=== PATIENT | female | born 1980 | race Caucasian/White ===

== ENCOUNTER 2022-02-20 18:52 | Observation (INO) | payer OTHER, MEDICAID, SELFPAY ==
[2022-02-20] VITALS (10 sets, daily range): BP systolic 99–117; BP diastolic 51–76; PULSE 50–65; RESP 14–24; TEMP 36.8–37.3; O2SAT 98–100; BMI 19.1
--- NOTE | 2022-02-20 19:16 | DI.CT.S_ITS ---
PROCEDURE: CT ABDOMEN PELVIS W CON INDICATIONS: 11 TECHNIQUE: After the administration of intravenous contrast, axial sections acquired from the lung bases to the pubic symphysis. Coronal and sagittal reformats were performed. For radiation dose reduction, the following was used: automated exposure control, adjustment of mA and/or kV according to patient size. COMPARISON: None. FINDINGS: Image quality: Excellent. Lung bases: Lung bases are clear. Heart size is normal. Solid organs: Liver: The liver has no mass or intrahepatic biliary ductal dilatation. The portal vein and hepatic veins are patent. Biliary: The gallbladder has no gallstones, pericholecystic fluid, gallbladder wall thickening, or surrounding inflammatory change. Pancreas: The pancreas has no mass or ductal dilatation. There is no surrounding inflammation. Spleen: Normal size. There are no masses. Adrenals: No hypertrophy or nodules. Kidneys: No obstructive calculus or hydronephrosis. No solid mass. No cystic mass. Peritoneum and bowel: The distal esophagus and stomach are normal. There are multiple fluid-filled segments of small bowel but no evidence of small-bowel obstruction. A segment of large bowel in the central abdomen is significantly dilated measuring 12 x 9 cm and 17 cm in length. This dilated loop of bowel is likely sigmoid colon given that the left colon is not visualized in the left colic gutter. Lack of enteric contrast limits evaluation. A sigmoid volvulus is suspected. The right colon is also dilated. Nodes and vessels: No retroperitoneal or mesenteric adenopathy by size criteria. Aorta and inferior vena cava are normal in size. Miscellaneous: No abdominal wall mass or hernia. PELVIS: Genitourinary: The bladder has no wall thickening or mass. a left cyst measures 3 cm. Smaller adjacent cysts measuring approximately 1.5 cm peripheral enhancement are likely active ovarian follicles.. The uterus is grossly normal. Bones: No suspicious bony lesions. No vertebral body compression fractures. IMPRESSION: Severely distended sigmoid colon which is displaced to the right, likely due to sigmoid volvulus. Findings were discussed with Dr. Barlow at 20:15. Dictated by: Aric Figueroa M.D. on 02/20/2022 at 20:05 Approved by: Aric Figueroa M.D. on 02/20/2022 at 20:20
--- NOTE | 2022-02-20 19:16 | ED.GENADULT ---
HPI - General Adult General Chief complaint: Abdominal Pain Stated complaint: Abdominal Pain today Time Seen by Provider: 02/20/22 19:11 Source: patient Mode of arrival: Wheelchair Limitations: no limitations History of Present Illness HPI narrative: Patient is a 42-year-old female who is here for evaluation of abdominal pain. States that it started shortly after she woke up this morning and has progressively worsened throughout the day. She states she has had a constant pain but there are times when it is much worse than others. Has had some nausea but no vomiting. The drive into the emergency department was especially painful for her. She has not had a bowel movement today. States she is not passing any flatus. She has not had any prior abdominal surgeries. Denies any urinary symptoms. No vaginal bleeding. No fevers. Related Data Allergies Allergy/AdvReac Type Severity Reaction Status Date / Time Sulfa (Sulfonamide Allergy Verified 02/20/22 19:09 Antibiotics) Review of Systems Constitutional Constitutional: Denies fever(s) Cardiovascular Cardiovascular: Reports system reviewed and no additional complaints, except as documented Respiratory Respiratory: Reports system reviewed and no additional complaints, except as documented Gastrointestinal Gastrointestinal: Reports as per HPI and Reports system reviewed and no additional complaints, except as documented Genitourinary Genitourinary: Reports system reviewed and no additional complaints, except as documented and Reports as per HPI Integumentary/Breasts Skin/Breast: Reports system reviewed and no additional complaints, except as documented Hematologic/Lymphatic On Anticoagulants: No Patient History Medical History Healthy adult Social History Smoking Status: Never smoker Smoking Status: Never smoker Substance Use Type: marijuana Exam Initial Vital Signs Initial Vital Signs: Vital Signs Temperature 98.3 F 02/20/22 19:05 Pulse Rate 58 L 02/20/22 19:05 Respiratory Rate 24 02/20/22 19:05 Blood Pressure 109/53 L 02/20/22 19:05 Pulse Oximetry 100 02/20/22 19:05 Const General: cooperative, well developed and well groomed HENMT Head: normal to inspection and normocephalic Resp Effort & Inspection: normal respiratory effort Auscultation: clear to auscultation bilaterally Cardio Rate: regular rate Rhythm: regular rhythm GI Inspection: non-distended Palpation: guarding and mass (Periumbilical right lower quadrant) Skin General: no rashes or lesions noted Neuro General: patient alert, patient awake and moves all extremities Cognition: normal cognition Speech: speech normal Extrem General: normal to inspection and capillary refill normal Psych Appearance: grossly normal and well kempt Course Orders Ordered: ED Orders 02/20/22 19:04 Complete Blood Count AUTO DIFF Stat Comprehensive Metabolic Panel Stat Lipase Stat Test Serum,Qual Stat 02/20/22 19:16 CT abdomen pelvis w con Stat 02/20/22 19:33 Urine Culture Stat Urine Microscopic Stat 02/20/22 20:29 Consult to General Surgery Stat 02/20/22 21:00 COVID19 -Nasal RAPID/Pre-Proc Stat Discontinued Medications Sodium Chloride (Normal Saline 0.9%) 1,000 mls @ 1,000 mls/hr IV BOLUS ONE Stop: 02/20/22 20:11 Last Admin: 02/20/22 19:24 Dose: 1,000 mls/hr Documented by: ATAYLOR Vital Signs Vital signs: Vital Signs - 8 hr 02/20/22 19:05 02/20/22 20:30 Temperature 98.3 F Pulse Rate 58 L 55 L Respiratory Rate 24 16 Blood Pressure 109/53 L 110/59 L Pulse Oximetry 100 99 Medical Decision Making Lab Data Lab results reviewed: Yes I reviewed the patient's lab results. Result diagrams: 02/20/22 19:04 02/20/22 19:04 Labs: Lab Results 02/20/22 02/20/22 02/20/22 Range/Units 19:04 19:04 19:04 WBC 8.4 (4.5-11.0) X10^3/uL RBC 4.68 (4.0-5.2) X10^6/uL Hgb 13.4 (12.0-16.0) g/dL Hct 39.6 (36-46) % MCV 84.6 (80-100) fL MCH 28.6 (26-34) PG MCHC 33.8 (30-36) % RDW 14.3 (11.6-14.8) % Plt Count 236 (150-400) X10^3/uL Neut % (Auto) 73.3 (50-75) % Lymph % (Auto) 19.0 L (25-40) % [place] % (Auto) 6.7 (3-14) % Eos % (Auto) 0.4 L (2-4) % Baso % (Auto) 0.6 (0-2) % Neut # (Auto) 6200 (5922-5131) /uL Lymph # (Auto) 1600 (4081-8231) /uL [place] # (Auto) 600 (0-900) /uL Eos # (Auto) 0 (0-450) /uL Baso # (Auto) 0 (0-100) /uL Sodium 137 (137-145) mmol/L Potassium 3.7 (3.4-5.1) mmol/L Chloride 103 (98-107) mmol/L Carbon Dioxide 22 (22-32) mmol/L BUN 7 (7-17) mg/dL Creatinine 0.67 (0.52-1.04) mg/dL Estimated GFR > 60 (>60) mL/min BUN/Creatinine Ratio 10.4 (6-22) Glucose 122 H (70-100) mg/dL Calcium 9.3 (8.4-10.2) mg/dL Total Bilirubin 0.9 (0.2-1.3) mg/dL AST 31 (14-36) IU/L ALT 21 (<35) IU/L Alkaline Phosphatase 33 L (38-126) U/L Total Protein 8.0 (6.3-8.2) g/dL Albumin 4.7 (3.5-5.0) g/dL Globulin 3.3 (1.7-4.1) g/dL Albumin/Globulin Ratio 1.4 (1.0-2.8) Lipase 56 (23-300) U/L Serum , Qual Negative (Negative) Urine RBC (0-5/HPF) Urine WBC (0-5/HPF) Ur Squamous Epith Cells (0-5/HPF) Ur Transition Epith Cell (0-5/HPF) Urine Bacteria (None) Urine Mucus (Negative) Ur Culture Indicated? SARS-CoV-2 (PCR) (Negative) 02/20/22 02/20/22 Range/Units 19:33 21:00 WBC (4.5-11.0) X10^3/uL RBC (4.0-5.2) X10^6/uL Hgb (12.0-16.0) g/dL Hct (36-46) % MCV (80-100) fL MCH (26-34) PG MCHC (30-36) % RDW (11.6-14.8) % Plt Count (150-400) X10^3/uL Neut % (Auto) (50-75) % Lymph % (Auto) (25-40) % [place] % (Auto) (3-14) % Eos % (Auto) (2-4) % Baso % (Auto) (0-2) % Neut # (Auto) (5250-1875) /uL Lymph # (Auto) (7096-1437) /uL [place] # (Auto) (0-900) /uL Eos # (Auto) (0-450) /uL Baso # (Auto) (0-100) /uL Sodium (137-145) mmol/L Potassium (3.4-5.1) mmol/L Chloride (98-107) mmol/L Carbon Dioxide (22-32) mmol/L BUN (7-17) mg/dL Creatinine (0.52-1.04) mg/dL Estimated GFR (>60) mL/min BUN/Creatinine Ratio (6-22) Glucose (70-100) mg/dL Calcium (8.4-10.2) mg/dL Total Bilirubin (0.2-1.3) mg/dL AST (14-36) IU/L ALT (<35) IU/L Alkaline Phosphatase (38-126) U/L Total Protein (6.3-8.2) g/dL Albumin (3.5-5.0) g/dL Globulin (1.7-4.1) g/dL Albumin/Globulin Ratio (1.0-2.8) Lipase (23-300) U/L Serum , Qual (Negative) Urine RBC 0-1/hpf (0-5/HPF) Urine WBC 10-30/hpf H (0-5/HPF) Ur Squamous Epith Cells 1-5 /hpf (0-5/HPF) Ur Transition Epith Cell 1-5/hpf (0-5/HPF) Urine Bacteria Few (2-10) H (None) Urine Mucus 1+ H (Negative) Ur Culture Indicated? Specimen cultured SARS-CoV-2 (PCR) Negative (Negative) Urine Dip Bedside Urine Glucose Negative Bedside Urine Bilirubin - Negative Bedside Urine Ketone +/- 5 Urine Specific [place] 1.020 Bedside Urine Occult Blood - Negative Bedside Urine pH 6.0 Bedside Urine Protein - Negative Bedside Urine Urobilinogen - Negative Bedside Urine Nitrite - Negative Bedside Urine Leukocytes + 70 Esterase Point of care testing: Urine Dip Bedside Urine Glucose Negative Bedside Urine Bilirubin - Negative Bedside Urine Ketone +/- 5 Urine Specific [place] 1.020 Bedside Urine Occult Blood - Negative Bedside Urine pH 6.0 Bedside Urine Protein - Negative Bedside Urine Urobilinogen - Negative Bedside Urine Nitrite - Negative Bedside Urine Leukocytes + [address] scan - abdomen/pelvis: Radiologist's Impression: [address] [address] [address] Scan Report Signed Patient: Misa López MR#: [id number] : 1980 Acct:[id number] Age/Sex: 42 / F Date of Service: 02/20/22 Loc: ED Accession Number: [id number] ?? Procedure: CT abdomen pelvis w con Ordering Provider: Jose Barlow D.O. PROCEDURE:? CT ABDOMEN PELVIS W CON ? INDICATIONS:? 11 ? TECHNIQUE:? After the administration of intravenous contrast, axial sections acquired from the lung bases to the pubic symphysis.? Coronal and sagittal reformats were performed.? For radiation dose reduction, the following was used:? automated exposure control, adjustment of mA and/or kV according to patient size.? ? COMPARISON:? None. ? FINDINGS: Image quality:? Excellent.? ? Lung bases:? Lung bases are clear.? Heart size is normal. ? Solid organs:? Liver: The liver has no mass or intrahepatic biliary ductal dilatation. The portal vein and hepatic veins are patent. Biliary: The gallbladder has no gallstones, pericholecystic fluid, gallbladder wall thickening, or surrounding inflammatory change. Pancreas: The pancreas has no mass or ductal dilatation. There is no surrounding inflammation. Spleen: Normal size. There are no masses. Adrenals: No hypertrophy or nodules. Kidneys: No obstructive calculus or hydronephrosis.? No solid mass. No cystic mass. ? Peritoneum and bowel:? The distal esophagus and stomach are normal.? There are multiple fluid-filled segments of small bowel but no evidence of small-bowel obstruction.? A segment of large bowel in the central abdomen is significantly dilated measuring 12 x 9 cm and 17 cm in length.? This dilated loop of bowel is likely sigmoid colon given that the left colon is not visualized in the left colic gutter.? Lack of enteric contrast limits evaluation.? A sigmoid volvulus is suspected.? The right colon is also dilated. ? ? Nodes and vessels:? No retroperitoneal or mesenteric adenopathy by size criteria.? Aorta and inferior vena cava are normal in size.? ? Miscellaneous:? No abdominal wall mass or hernia. ? PELVIS:? Genitourinary:? The bladder has no wall thickening or mass. a left cyst measures 3 cm.? Smaller adjacent cysts measuring approximately 1.5 cm peripheral enhancement are likely active ovarian follicles..? The uterus is grossly normal.? Bones:? No suspicious bony lesions.? No vertebral body compression fractures.? ? IMPRESSION:? Severely distended sigmoid colon which is displaced to the right, likely due to sigmoid volvulus.? Findings were discussed with Dr. Barlow at 20:15. ? ? Dictated by: Aric Figueroa M.D. on 02/20/2022 at 20:05 ? ? Approved by: Aric Figueroa M.D. on 02/20/2022 at 20:20?? [facility] Narrative Medical decision making narrative: Lower abdominal discomfort specifically periumbilical and right lower quadrant. There is a small mass in this area the does seem to be exquisitely tender to the patient. Labs are unremarkable. Vital signs unremarkable. Patient declined offer for nausea and pain medication as she states when she is lying flat and still she is not in much discomfort. CT scan concerning for sigmoid volvulus. Discussed the case with Dr. Mcneal on-call for General surgery who will see the patient emergency department and admit for further evaluation treatment. Discharge Plan Departure Patient Disposition: Admitted As Inpatient Clinical Impression: Sigmoid volvulus Admit Date/Time: 02/20/22 21:19 Admit Provider: Ole Mcneal
[2022-02-20 19:20] LABS: Add Manual Diff / Slide Review NO; Basophils Absolute Auto 0 /uL (0-100); Basophils Percent Auto 0.6 % (0-2); Eosinophils Absolute Auto 0 /uL (0-450); Eosinophils Percent Auto 0.4 % (2-4); Hematocrit 39.6 % (36-46); Hemoglobin 13.4 g/dL (12.0-16.0); Lymphocytes Absolute Auto 1600 /uL (1100-4500); Mean Corpuscular HGB Conc 33.8 % (30-36); Mean Corpuscular Hemoglobin 28.6 PG (26-34); Mean Corpuscular Volume 84.6 fL (80-100); Monocytes Absolute Auto 600 /uL (0-900); Monocytes Percent Auto 6.7 % (3-14); Neutrophils Absolute Auto 6200 /uL (1500-7000); Neutrophils Percent Auto 73.3 % (50-75); Platelet Count 236 X10^3/uL (150-400); Red Blood Cell Count 4.68 X10^6/uL (4.0-5.2); Red Cell Distribution Width 14.3 % (11.6-14.8); White Blood Cell Count 8.4 X10^3/uL (4.5-11.0)
[2022-02-20] MEDS: SODIUM CHLORIDE 0.9% 1,000 ML 1000 ML IV (19:24)
[2022-02-20 19:30] LABS: Alanine Aminotransferase 21 IU/L (<35); Albumin 4.7 g/dL (3.5-5.0); Albumin Globulin Ratio 1.4 (1.0-2.8); Alkaline Phosphatase 33 U/L (38-126); Aspartate Aminotransferase 31 IU/L (14-36); BUN Creatinine Ratio 10.4 (6-22); Bilirubin Total 0.9 mg/dL (0.2-1.3); Blood Urea Nitrogen 7 mg/dL (7-17); Calcium 9.3 mg/dL (8.4-10.2); Carbon Dioxide 22 mmol/L (22-32); Chloride 103 mmol/L (98-107); Estimated Glomerular Filt Rate > 60 mL/min (>60); Globulin 3.3 g/dL (1.7-4.1); Glucose 122 mg/dL (70-100); HEMOLYSIS 24 (0-50); Lipase 56 U/L (23-300); Potassium 3.7 mmol/L (3.4-5.1); Sodium 137 mmol/L (137-145)
[2022-02-20 19:41] LABS: Pregnancy Test Serum,Qual Negative (Negative)
[2022-02-20 19:47] LABS: Bacteria Urine Few (2-10); Culture Indicated Urine Specimen Cultured; Mucus Urine 1+ (Negative); RBC Urine 0-1/HPF (0-5/HPF); Squamous Epithelial Cell Urine 1-5 /HPF (0-5/HPF); Transitional Epi Cells Urine 1-5/HPF (0-5/HPF); WBC Urine 10-30/HPF (0-5/HPF)
[2022-02-20 21:19] LABS: COVID19 -Nasal RAPID Negative (Negative)
--- NOTE | 2022-02-20 21:40 | PM.HP.1 ---
History of Present Illness History of Present Illness Date Patient Seen: 02/20/22 Time Patient Seen: 21:41 Chief complaint: Abdominal Pain today Narrative: 42-year-old woman presents with sudden onset of lower abdominal pain that started this morning. Initially she thought she had a distended bladder but the pain persisted after voiding. She noticed difficulty walking especially moving the right leg. No vomiting but she has been belching. She has not passed gas or had a bowel movement. She presented to the emergency room where a CT scan was suggestive of sigmoid volvulus. She denies prior medical problems or surgeries. Never had a colonoscopy. She reports she has always had some difficulty with her bowels and difficulty with certain vegetables causing gas and crampy pain. Patient History Medical History Healthy adult Family & Social History Safety & Behavioral: Feels Safe in Current Yes Environment Tobacco & Substance use: Smoking Status Never smoker Substance Use Type marijuana Meds Home Medications and Allergies Allergies Allergy/AdvReac Type Severity Reaction Status Date / Time Sulfa (Sulfonamide Allergy Verified 02/20/22 19:09 Antibiotics) Exam Vital Signs (past 8 hours): - 02/20/22 19:05 02/20/22 20:30 Temperature 98.3 F Pulse Rate 58 L 55 L Respiratory Rate 24 16 Blood Pressure 109/53 L 110/59 L Pulse Oximetry 100 99 Oxygen Delivery Method Room Air Const General: healthy appearing Resp Effort & Inspection: normal respiratory effort GI Other: No peritoneal findings There is a distended tender mass in the right lower quadrant Objective Labs Result Diagrams: 02/20/22 19:04 02/20/22 19:04 Labs: Laboratory Results - last 24 hr 02/20/22 02/20/22 02/20/22 19:04 19:04 19:04 WBC 8.4 RBC 4.68 Hgb 13.4 Hct 39.6 MCV 84.6 MCH 28.6 MCHC 33.8 RDW 14.3 Plt Count 236 Neut % (Auto) 73.3 Lymph % (Auto) 19.0 L [place] % (Auto) 6.7 Eos % (Auto) 0.4 L Baso % (Auto) 0.6 Neut # (Auto) 6200 Lymph # (Auto) 1600 [place] # (Auto) 600 Eos # (Auto) 0 Baso # (Auto) 0 Sodium 137 Potassium 3.7 Chloride 103 Carbon Dioxide 22 BUN 7 Creatinine 0.67 Estimated GFR > 60 BUN/Creatinine Ratio 10.4 Glucose 122 H Calcium 9.3 Total Bilirubin 0.9 AST 31 ALT 21 Alkaline Phosphatase 33 L Total Protein 8.0 Albumin 4.7 Globulin 3.3 Albumin/Globulin Ratio 1.4 Lipase 56 Serum , Qual Negative Urine RBC Urine WBC Ur Squamous Epith Cells Ur Transition Epith Cell Urine Bacteria Urine Mucus Ur Culture Indicated? SARS-CoV-2 (PCR) 02/20/22 02/20/22 19:33 21:00 WBC RBC Hgb Hct MCV MCH MCHC RDW Plt Count Neut % (Auto) Lymph % (Auto) [place] % (Auto) Eos % (Auto) Baso % (Auto) Neut # (Auto) Lymph # (Auto) [place] # (Auto) Eos # (Auto) Baso # (Auto) Sodium Potassium Chloride Carbon Dioxide BUN Creatinine Estimated GFR BUN/Creatinine Ratio Glucose Calcium Total Bilirubin AST ALT Alkaline Phosphatase Total Protein Albumin Globulin Albumin/Globulin Ratio Lipase Serum , Qual Urine RBC 0-1/hpf Urine WBC 10-30/hpf H Ur Squamous Epith Cells 1-5 /hpf Ur Transition Epith Cell 1-5/hpf Urine Bacteria Few (2-10) H Urine Mucus 1+ H Ur Culture Indicated? Specimen cultured SARS-CoV-2 (PCR) Negative Assessment & Plan Assessment and plan (1) Sigmoid volvulus: Status: Acute Plan 42-year-old woman with sigmoid volvulus. Discussed the risks and benefits of colonoscopy or rigid proctoscopy to de torse the colon. I explained that the normal plan would be to leave a rectal tube or some type of tube in the sigmoid colon to prevent it from volvulizing again and proceed with surgery after a bowel prep. Explained that this is due to the fact that volvulus tends to recur. She understands this and she consents to the endoscopy to detorse the volvulus. She would prefer to think about the surgery bit more after we untwist her colon. We will proceed with endoscopy tonight. Time Spent With Patient Critical Care time: I spent a total of [] minutes of critical care time on this patient's care today; this time is exclusive of procedural time.
[2022-02-20] MEDS: LACTATED RINGERS 1,000 ML 42 ML IV (21:48)
--- NOTE | 2022-02-20 22:02 | SUR.HOLD ---
Pt and brought to preop, both Dr. Bautista and Dr. Mcneal spoke with pt, pt then brought to OR after consents signed.
--- NOTE | 2022-02-20 22:30 | DI.RAD.S_ITS ---
PROCEDURE: XR KUB INDICATIONS: s/p detorsion of sigmiod with rectal tube TECHNIQUE: One view of the abdomen acquired. COMPARISON: None. FINDINGS: Surgical changes and devices: There is a rectal tube in place. Bowel: There is gaseous distension throughout colon and small bowel loops without a distinct pattern. No focal dilated bowel loop as seen by CT previously. Soft tissues: No suspicious abdominal calcifications. Visualized solid organ contours appear normal in size. There is excretion of previously administered IV contrast in the renal and ureteral collecting systems. Bones: No suspicious bony lesions. IMPRESSION: 1. There is air throughout small and large bowel without a focal loop dilatation is seen previously by CT. This may indicate detorsion of previous volvulus. Dictated by: Yuki Ortega M.D. on 02/20/2022 at 23:21 Approved by: Yuki Ortega M.D. on 02/20/2022 at 23:28
--- NOTE | 2022-02-20 22:31 | DI.RAD.S_ITS ---
PROCEDURE: XR CHEST 1V INDICATIONS: s/p sigmoid detorsion TECHNIQUE: One view of the chest was acquired. COMPARISON: None. FINDINGS: Surgical changes and devices: None. Lungs and pleura: Lungs are clear. No pleural effusions or pneumothorax. Mediastinum: Mediastinal contours appear normal. Heart size is normal. Bones and chest wall: No suspicious bony lesions. Overlying soft tissues appear unremarkable. IMPRESSION: 1. No free intraperitoneal air. 2. No acute cardiopulmonary disease. Dictated by: Yuki Ortega M.D. on 02/20/2022 at 23:28 Approved by: Yuki Ortega M.D. on 02/20/2022 at 23:28
--- NOTE | 2022-02-20 22:49 | SUR.PHASEI ---
Pt arrived to PACU, airway patent, pt drowsy, awoke, denied pain. Both Dr. Bautista and Dr. Mcnael spoke with pt. Pt passing gas.Report called to Barry. Pt brought up to room.
--- NOTE | 2022-02-20 22:56 | PM.OP.1 ---
Operative Date/Time/Diagnoses Date of procedure: 02/20/22 Time of procedure: 22:56 Pre-op diagnosis: Sigmoid volvulus Post-op diagnosis: same Procedure & Clinicians Procedure: Flexible Sigmoidoscopy Same procedure as scheduled: Yes Indications: Sigmoid volvulus Surgeon: Ole Mcneal Anesthesia Type: MAC +/- Operative Notes Procedure in detail: Patient was brought to the operating room on the [facility] and a time-out was performed. Monitored anesthesia was induced by Dr. Bautista with propofol and fentanyl. A digital rectal exam was performed with lubricant. The colonoscope was inserted and advanced to the distal sigmoid colon where the colon appeared to be twisted and collapsed. The colonoscope was gently advanced through and passed to the descending colon. The scope was advanced to approximately the splenic flexure where solid stool eventually obscured the entire colon lumen. The colonoscope was then withdrawn into the rectum and a large 30 [place] red rubber catheter was advanced alongside the colonoscope up into the sigmoid colon. The scope was withdrawn leaving red rubber catheter in place. The catheter was taped to the inner thigh. There were no other obvious lesions in the visualized segments of the colon. Post-operative Condition: stable Disposition: PACU
--- NOTE | 2022-02-20 23:18 | SUR.PHASEI ---
Pt brought up to room 204 with belongings and left in stable condition.
[2022-02-20] MEDS: HYDROMORPHONE 0.5 MG INJ IV (23:21)
[2022-02-20] MEDS: DEXTROSE 5%-LACTATED RINGERS 1,000 ML 100 ML IV (23:21)
[2022-02-21 00:29] VITALS: BP 104/56; PULSE 52; RESP 16; TEMP 36.6; O2SAT 100
[2022-02-21 01:26] VITALS: BP 112/60; PULSE 52; RESP 18; TEMP 36.7; O2SAT 99
[2022-02-21 04:28] VITALS: BP 106/58; PULSE 52; RESP 14; TEMP 36.7; O2SAT 96
[2022-02-21 04:56] LABS: Add Manual Diff / Slide Review NO; Basophils Absolute Auto 0 /uL (0-100); Basophils Percent Auto 0.6 % (0-2); Eosinophils Absolute Auto 100 /uL (0-450); Eosinophils Percent Auto 0.9 % (2-4); Hematocrit 35.1 % (36-46); Hemoglobin 11.9 g/dL (12.0-16.0); Lymphocytes Absolute Auto 1500 /uL (1100-4500); Lymphocytes Percent Auto 20.5 % (25-40); Mean Corpuscular HGB Conc 33.8 % (30-36); Mean Corpuscular Hemoglobin 28.6 PG (26-34); Mean Corpuscular Volume 84.6 fL (80-100); Monocytes Absolute Auto 700 /uL (0-900); Monocytes Percent Auto 10.3 % (3-14); Neutrophils Absolute Auto 4800 /uL (1500-7000); Neutrophils Percent Auto 67.7 % (50-75); Platelet Count 209 X10^3/uL (150-400); Red Blood Cell Count 4.15 X10^6/uL (4.0-5.2); Red Cell Distribution Width 14.1 % (11.6-14.8); White Blood Cell Count 7.1 X10^3/uL (4.5-11.0)
[2022-02-21 05:16] LABS: BUN Creatinine Ratio 6.7 (6-22); Blood Urea Nitrogen 4 mg/dL (7-17); Calcium 8.3 mg/dL (8.4-10.2); Carbon Dioxide 23 mmol/L (22-32); Chloride 105 mmol/L (98-107); Estimated Glomerular Filt Rate > 60 mL/min (>60); Glucose 124 mg/dL (70-100); HEMOLYSIS < 15 (0-50); Magnesium 1.8 mg/dL (1.6-2.3); Potassium 3.4 mmol/L (3.4-5.1); Sodium 134 mmol/L (137-145)
--- NOTE | 2022-02-21 08:26 | DI.CT.S_ITS ---
PROCEDURE: CT ABDOMEN PELVIS WO CON INDICATIONS: rule out cecal volvulus TECHNIQUE: Rectal contrast was given. Axial sections were acquired from the lung bases to the pubic symphysis. Coronal and sagittal reformats were performed. For radiation dose reduction, the following was used: automated exposure control, adjustment of mA and/or kV according to patient size. COMPARISON: [facility], CR, XR KUB, 02/20/2022, 22:32. [facility], CT, CT ABDOMEN PELVIS W CON, 02/20/2022, 19:47. FINDINGS: Image quality: Excellent. Lung bases: Unremarkable. Heart: No significant findings. URINARY: Kidneys: The kidneys demonstrate normal size and demonstrate no hydronephrosis. No stones are seen. Bladder: Normal wall thickness. No stones. ABDOMEN: Liver: Unremarkable. Gallbladder: Vicarious excretion of contrast can be seen within the gallbladder. Biliary ducts: Unremarkable. Pancreas: Unremarkable. Spleen: Unremarkable. Adrenal Glands: Unremarkable. Stomach and Bowel: Rectal contrast is given. The cecum is abnormally enlarged, measuring nearly 10 cm. No deshawn colonic masses are detected. No significant bowel wall thickening is seen. Volvulus is not seen at this time. No dilated loops of small bowel are seen. Peritoneum: No abnormal intraperitoneal fluid. No free air. Ventral Wall: No hernia. Abdominal Nodes: No enlarged retroperitoneal or mesenteric lymph nodes. Vessels: Aorta and inferior vena cava are normal in size. PELVIS: Pelvic Organs: Unremarkable. Pelvic Nodes: Unremarkable. Miscellaneous: No inguinal hernias are seen. Bones: Unremarkable. IMPRESSION: No cecal volvulus. Abnormally enlarged cecum, measuring nearly 10 cm. Appearances cecum is overall improved compared to the 02/20/2022 examination. Dictated by: Soren Moreno M.D. on 02/21/2022 at 9:50 Approved by: Soren Moreno M.D. on 02/21/2022 at 9:54
--- NOTE | 2022-02-21 08:28 | PM.PN.1 ---
Subjective Subjective Date Patient Seen: 02/21/22 Time Patient Seen: 08:28 Interval history: Misa is not sure she feels better. She had abdominal pain overnight and then got up to urinate around 4 and felt that she did pass some more gas with some relief. Exam Vital Signs (past 8 hours): - 02/21/22 00:29 02/21/22 01:26 02/21/22 04:28 Temperature 97.8 F 98.0 F 98.0 F Pulse Rate 52 L 52 L 52 L Respiratory Rate 16 18 14 Blood Pressure 104/56 L 112/60 106/58 L Pulse Oximetry 100 99 96 Oxygen Delivery Method Room Air Oxygen Flow Rate 0 Narrative Exam Narrative: Abdomen is soft, but diffusely tender to palpation. There is no discreet palpable mass in the right lower quadrant or anywhere else There are no peritoneal findings Rectal tube remains in the rectum but appears to have moved about 15 cms distally Objective Labs Result Diagrams: 02/21/22 04:07 02/21/22 04:07 Labs: Laboratory Results - last 24 hr 02/20/22 02/20/22 02/20/22 19:04 19:04 19:04 WBC 8.4 RBC 4.68 Hgb 13.4 Hct 39.6 MCV 84.6 MCH 28.6 MCHC 33.8 RDW 14.3 Plt Count 236 Neut % (Auto) 73.3 Lymph % (Auto) 19.0 L Phillips % (Auto) 6.7 Eos % (Auto) 0.4 L Baso % (Auto) 0.6 Neut # (Auto) 6200 Lymph # (Auto) 1600 Phillips # (Auto) 600 Eos # (Auto) 0 Baso # (Auto) 0 Sodium 137 Potassium 3.7 Chloride 103 Carbon Dioxide 22 BUN 7 Creatinine 0.67 Estimated GFR > 60 BUN/Creatinine Ratio 10.4 Glucose 122 H Calcium 9.3 Magnesium Total Bilirubin 0.9 AST 31 ALT 21 Alkaline Phosphatase 33 L Total Protein 8.0 Albumin 4.7 Globulin 3.3 Albumin/Globulin Ratio 1.4 Lipase 56 Serum , Qual Negative Urine RBC Urine WBC Ur Squamous Epith Cells Ur Transition Epith Cell Urine Bacteria Urine Mucus Ur Culture Indicated? SARS-CoV-2 (PCR) 02/20/22 02/20/22 02/21/22 19:33 21:00 04:07 WBC 7.1 RBC 4.15 Hgb 11.9 L Hct 35.1 L MCV 84.6 MCH 28.6 MCHC 33.8 RDW 14.1 Plt Count 209 Neut % (Auto) 67.7 Lymph % (Auto) 20.5 L Phillips % (Auto) 10.3 Eos % (Auto) 0.9 L Baso % (Auto) 0.6 Neut # (Auto) 4800 Lymph # (Auto) 1500 Phillips # (Auto) 700 Eos # (Auto) 100 Baso # (Auto) 0 Sodium Potassium Chloride Carbon Dioxide BUN Creatinine Estimated GFR BUN/Creatinine Ratio Glucose Calcium Magnesium Total Bilirubin AST ALT Alkaline Phosphatase Total Protein Albumin Globulin Albumin/Globulin Ratio Lipase Serum , Qual Urine RBC 0-1/hpf Urine WBC 10-30/hpf H Ur Squamous Epith Cells 1-5 /hpf Ur Transition Epith Cell 1-5/hpf Urine Bacteria Few (2-10) H Urine Mucus 1+ H Ur Culture Indicated? Specimen cultured SARS-CoV-2 (PCR) Negative 02/21/22 04:07 WBC RBC Hgb Hct MCV MCH MCHC RDW Plt Count Neut % (Auto) Lymph % (Auto) Phillips % (Auto) Eos % (Auto) Baso % (Auto) Neut # (Auto) Lymph # (Auto) Phillips # (Auto) Eos # (Auto) Baso # (Auto) Sodium 134 L Potassium 3.4 Chloride 105 Carbon Dioxide 23 BUN 4 L Creatinine 0.60 Estimated GFR > 60 BUN/Creatinine Ratio 6.7 Glucose 124 H Calcium 8.3 L Magnesium 1.8 Total Bilirubin AST ALT Alkaline Phosphatase Total Protein Albumin Globulin Albumin/Globulin Ratio Lipase Serum , Qual Urine RBC Urine WBC Ur Squamous Epith Cells Ur Transition Epith Cell Urine Bacteria Urine Mucus Ur Culture Indicated? SARS-CoV-2 (PCR) [facility] Medical History Healthy adult Social History household members: spouse Smoking Status: Never smoker alcohol intake: former Assessment & Plan Assessment and plan (1) Sigmoid volvulus: Status: Acute Plan Will repeat CT scan with rectal contrast to better define colon anatomy and to rule out cecal volvulus. Time Spent With Patient Critical Care time: I spent a total of [] minutes of critical care time on this patient's care today; this time is exclusive of procedural time.
[2022-02-21 09:00] VITALS: BP 96/51; PULSE 65; RESP 15; TEMP 36.7; O2SAT 99
--- NOTE | 2022-02-21 09:14 | CM.DANOTE ---
Addendum entered by MIGEL Loomis 02/21/22 12:54: ADD: Per Surgeon, pt tolerated procedure well and had some resolution of symptoms and advancing her diet and potential to remain in the hospital to observe but pt requests home and to monitor her symptoms with advancing diet and to have outpt colonoscopy and bowel prep after discharge. Pt denies any needs and wants to d/c home today. BF Addendum entered by MIGEL Loomis 02/21/22 11:37: ADD: Per Adm Counselor, they were able to update pt's application with [employer] and get her [facility] reactivated. Original Note: Patient is a 42 yo female who was admitted on 02/20/22 for Abd Pain. Pt has Private Pay for insurance and state insurance packet information given to pt at admission and no PCP established at this time. Per Surgeon, pt admitted with Sigmoid Volvus and to have endoscopy last night. Per Surgeon, pt tolerated procedure well. SW attempted to meet bedside and pt in the bathroom and SW will attempt again later. Pt lives on [facility] with Sig Other and is active and independent at baseline. Plan: SW to follow closely for likely pt d/c home when medically stable and any further identified discharge planning needs and to provide PCP list if needed. MIGEL Loomis Discharge Planning/Care Management CM Discharge Assessment Start: 02/21/22 09:12 Freq: Status: Active Protocol: Document 02/21/22 09:12 (Rec: 02/21/22 09:14 [id number]) Discharge Planning Assessment Assigned Fern Picker MIGEL Perez Advance Directives? No Advance Directives on File No History Provided By Patient,Medical Record Has Patient been admitted in last 30 No days? Prior Living Arrangements House Household Members significant other Type of transporation used prior to Drives own vehicle admit Independent with ADL's Yes Is patient alert and oriented? Yes Caregiver for Another No Barriers to Discharge No Discharge Plan Home Transportation Arrangement Likely Sig Other Referrals Initiated None needed Additional Comment Pending medical progress Whiteboard Updated in Patient Room with Yes name and ext. # of Fern Picker Review Status In Process Please Provide Date Initial DC 02/21/22 Assessment Was Performed Next Review Type Continued Stay Review
--- NOTE | 2022-02-21 09:55 | PC.NURSE ---
Addendum entered by Mike Navarro R.N. 02/21/22 13:32: Discharge order received. Patient eager to leave, states she is eating at a restaurant in [place] for lunch and catching the [employer] home. Denies need for priority board pass. Patient is up ambulatory in room, denies pain. Talked with Dr. Mcneal at bedside extensively prior to discharge. Plans to follow up for colonoscopy ([place] [facility] to schedule). IV was discontinued intact. Escorted out (patient declined wheelchair) to discharge to home with her significant other. Addendum entered by Mike Navarro R.N. 02/21/22 11:23: Started IV potassium replacement as ordered, patient states it is too painful to her left arm and does not want to try it at a slower rate, declined/refused further administration of IV potassium. Pharmacy notified. Original Note: Went in to refill patient's IVF bag. States she did not realize there was dextrose in the IV fluids and reports she does not want to take it because she does not want dextrose in her body. Patient states she is tolerating clear liquids without difficulty and feels that she doesn't really need IV fluids anyways. She is drinking coconut water, water and herbal tea.
[2022-02-21] MEDS: POTASSIUM CHLORIDE IN WATER 10 MEQ/100 ML PIGGYBACK 100 MEQ IV (10:57)
[2022-02-21] MEDS: SODIUM CHLORIDE 0.9% 250 ML 21 ML IV (11:02)
--- NOTE | 2022-02-21 12:26 | PM.DS.1 ---
History of Present Illness History of Present Illness Chief complaint: Abdominal Pain today Narrative: 42-year-old woman presents with sudden onset of lower abdominal pain that started this morning. Initially she thought she had a distended bladder but the pain persisted after voiding. She noticed difficulty walking especially moving the right leg. No vomiting but she has been belching. She has not passed gas or had a bowel movement. She presented to the emergency room where a CT scan was suggestive of sigmoid volvulus. She denies prior medical problems or surgeries. Never had a colonoscopy. She reports she has always had some difficulty with her bowels and difficulty with certain vegetables causing gas and crampy pain. Discharge Providers Provider Date of admission: 02/20/22 21:19 Discharge Date: 02/21/22 Consults: 02/20/22 20:29 Consult to General Surgery Stat Comment: Consulting Provider: Ole Mcneal Reason for consultation: Sigmoid volvulus Has provider been notified: Yes Discharge provider: Ole Mcneal MD Summary Hospital Course Discharge Diagnosis: Abnormal imaging of the colon Change in bowel function Hospital Course: The patient was evaluated in the emergency room for sudden onset of abdominal pain and a CT was suggestive but not conclusive of sigmoid volvulus. Sigmoidoscopy was performed which showed a compressed portion of sigmoid colon but no dilated proximal bowel. A rectal tube was placed into the sigmoid colon and the patient was observed overnight. She reported continued abdominal discomfort overnight and a repeat CT scan was performed in the morning with rectal contrast which showed no sigmoid volvulus and no cecal volvulus but a very patulous, redundant, distended cecum. The plan was to advance her diet and discharge her if she tolerated it but she opted to discharge from the hospital and procure her own food with the plan to return immediately if her symptoms recurred. She will be scheduled for a outpatient colonoscopy after a bowel prep in the future. She was instructed to return to the hospital at any time if her symptoms recurred. Exam Vital Signs (past 8 hours): - 02/21/22 04:28 02/21/22 09:00 Temperature 98.0 F 98.1 F Pulse Rate 52 L 65 Respiratory Rate 14 15 Blood Pressure 106/58 L 96/51 L Pulse Oximetry 96 99 Oxygen Delivery Method Room Air Oxygen Flow Rate 0 Objective Labs Result Diagrams: 02/21/22 04:07 02/21/22 04:07 Labs: Laboratory Results - last 24 hr 02/20/22 02/20/22 02/20/22 19:04 19:04 19:04 WBC 8.4 RBC 4.68 Hgb 13.4 Hct 39.6 MCV 84.6 MCH 28.6 MCHC 33.8 RDW 14.3 Plt Count 236 Neut % (Auto) 73.3 Lymph % (Auto) 19.0 L [place] % (Auto) 6.7 Eos % (Auto) 0.4 L Baso % (Auto) 0.6 Neut # (Auto) 6200 Lymph # (Auto) 1600 [place] # (Auto) 600 Eos # (Auto) 0 Baso # (Auto) 0 Sodium 137 Potassium 3.7 Chloride 103 Carbon Dioxide 22 BUN 7 Creatinine 0.67 Estimated GFR > 60 BUN/Creatinine Ratio 10.4 Glucose 122 H Calcium 9.3 Magnesium Total Bilirubin 0.9 AST 31 ALT 21 Alkaline Phosphatase 33 L Total Protein 8.0 Albumin 4.7 Globulin 3.3 Albumin/Globulin Ratio 1.4 Lipase 56 Serum , Qual Negative Urine RBC Urine WBC Ur Squamous Epith Cells Ur Transition Epith Cell Urine Bacteria Urine Mucus Ur Culture Indicated? SARS-CoV-2 (PCR) 02/20/22 02/20/22 02/21/22 19:33 21:00 04:07 WBC 7.1 RBC 4.15 Hgb 11.9 L Hct 35.1 L MCV 84.6 MCH 28.6 MCHC 33.8 RDW 14.1 Plt Count 209 Neut % (Auto) 67.7 Lymph % (Auto) 20.5 L [place] % (Auto) 10.3 Eos % (Auto) 0.9 L Baso % (Auto) 0.6 Neut # (Auto) 4800 Lymph # (Auto) 1500 [place] # (Auto) 700 Eos # (Auto) 100 Baso # (Auto) 0 Sodium Potassium Chloride Carbon Dioxide BUN Creatinine Estimated GFR BUN/Creatinine Ratio Glucose Calcium Magnesium Total Bilirubin AST ALT Alkaline Phosphatase Total Protein Albumin Globulin Albumin/Globulin Ratio Lipase Serum , Qual Urine RBC 0-1/hpf Urine WBC 10-30/hpf H Ur Squamous Epith Cells 1-5 /hpf Ur Transition Epith Cell 1-5/hpf Urine Bacteria Few (2-10) H Urine Mucus 1+ H Ur Culture Indicated? Specimen cultured SARS-CoV-2 (PCR) Negative 02/21/22 04:07 WBC RBC Hgb Hct MCV MCH MCHC RDW Plt Count Neut % (Auto) Lymph % (Auto) Vill[place]ba % (Auto) Eos % (Auto) Baso % (Auto) Neut # (Auto) Lymph # (Auto) Villalba # (Auto) Eos # (Auto) Baso # (Auto) Sodium 134 L Potassium 3.4 Chloride 105 Carbon Dioxide 23 BUN 4 L Creatinine 0.60 Estimated GFR > 60 BUN/Creatinine Ratio 6.7 Glucose 124 H Calcium 8.3 L Magnesium 1.8 Total Bilirubin AST ALT Alkaline Phosphatase Total Protein Albumin Globulin Albumin/Globulin Ratio Lipase Serum , Qual Urine RBC Urine WBC Ur Squamous Epith Cells Ur Transition Epith Cell Urine Bacteria Urine Mucus Ur Culture Indicated? SARS-CoV-2 (PCR) [facility] Medical History Healthy adult Social History household members: significant other Smoking Status: Never smoker alcohol intake: former Discharge Plan Discharge Plan Patient Disposition: Home Provider Discharge Comment: Return if symptoms recur. Otherwise we will contact you in a few days to set up a colonoscopy. Discharge orders & Medications Prescriptions: No Action No Known Home Medications 0RF
== END 2022-02-21 13:15 | disposition home or self-care (01) ==
LOC: ED 20:36 → AC 21:20
PROVIDERS: Admitting Provider Surgery; Emergency Provider Emergency Medicine; Visit Provider Surgery
PROC: 0DJD8ZZ Inspection of Lower Intestinal Tract, Via Natural or Artificial Opening Endoscopic (ICD-10-PCS; CPT 45378; principal; 2022-02-20 21:30)
DX: K56.2 Volvulus (principal); Q43.8 Other specified congenital malformations of intestine; Z20.822 Contact with and (suspected) exposure to COVID-19
CPT/HCPCS: 45330; 36415; 71045; 74018; 74176; 74177; 80048; 80053; 81003; 81015; 83690; 83735; 84703; 85025; 87086; 87635; 96374; 99217; 99219; 99284; C9803; G0378; J1170; J2250; J2405; J2704; J3010; J7121; Q9967

== ENCOUNTER → 2024-05-21 13:06 | Outpatient (CLI) | payer OTHER, MEDICAID, SELFPAY ==
[2022-02-20 21:21] VITALS: BMI 19.1
[2024-05-21 20:14] LABS: Add Manual Diff / Slide Review NO; Basophils Absolute Auto 0 /uL (0-100); Basophils Percent Auto 0.6 % (0-2); Eosinophils Absolute Auto 200 /uL (0-450); Eosinophils Percent Auto 2.5 % (2-4); Hematocrit 40.4 % (36-46); Hemoglobin 13.7 g/dL (12.0-16.0); Lymphocytes Absolute Auto 2100 /uL (1100-4500); Lymphocytes Percent Auto 30.4 % (25-40); Mean Corpuscular HGB Conc 33.9 % (30-36); Mean Corpuscular Hemoglobin 29.7 PG (26-34); Mean Corpuscular Volume 87.6 fL (80-100); Monocytes Absolute Auto 700 /uL (0-900); Monocytes Percent Auto 9.9 % (3-14); Neutrophils Absolute Auto 4000 /uL (1500-7000); Neutrophils Percent Auto 56.6 % (50-75); Platelet Count 233 X10^3/uL (150-400); Red Blood Cell Count 4.61 X10^6/uL (4.0-5.2); White Blood Cell Count 7.1 X10^3/uL (4.5-11.0)
[2024-05-21 20:31] LABS: Alanine Aminotransferase 15 IU/L (<35); Albumin 4.3 g/dL (3.5-5.0); Albumin Globulin Ratio 1.7 (1.0-2.8); Alkaline Phosphatase 49 U/L (38-126); Aspartate Aminotransferase 23 IU/L (14-36); BUN Creatinine Ratio 7.1 (6-22); Bilirubin Total 0.9 mg/dL (0.2-1.3); Blood Urea Nitrogen 5 mg/dL (7-17); Calcium 9.3 mg/dL (8.4-10.2); Carbon Dioxide 22 mmol/L (22-32); Chloride 106 mmol/L (98-107); Cholesterol 162 mg/dL (140-199); Estimated Glomerular Filt Rate > 60 mL/min (>60); Globulin 2.6 g/dL (1.7-4.1); Glucose 90 mg/dL (70-100); HDL Cholesterol 62 mg/dL (40-60); HEMOLYSIS < 15 (0-50); LDL Cholesterol Calculated 86 mg/dL (<100); Potassium 3.9 mmol/L (3.4-5.1); Sodium 136 mmol/L (137-145); Total Protein 6.9 g/dL (6.3-8.2); Triglycerides 70 mg/dL (35-150)
[2024-05-21 21:03] LABS: Ferritin 14 ng/mL (6-137)
[2024-05-23 15:40] LABS: HIV 1 & 2 Ab/Ag 4th Gen Combo NEGATIVE (NEGATIVE); Hep C Virus Ab w/Reflex Quant NEGATIVE s/c (NEGATIVE)
== END ==
PROVIDERS: PCP Physician Assistant; Visit Provider Physician Assistant
DX: Z13.6 Encounter for screening for cardiovascular disorders (principal); Z92.89 Personal history of other medical treatment; Z11.59 Encounter for screening for other viral diseases; Z86.2 Personal history of diseases of the blood and blood-forming organs and certain disorders involving the immune mechanism; Z11.4 Encounter for screening for human immunodeficiency virus [HIV]
CPT/HCPCS: 80053; 80061; 82728; 85025; 86803; 87389